=== PATIENT | female | born 1955 | race Caucasian/White ===

== ENCOUNTER 2017-02-06 10:06 | Day surgery (SDC) | payer OTHER, MEDICAID ==
[2017-02-06] MEDS ORDERED: NS 500 ML IV 500 ML IV ONE (10:41)
[2017-02-06] MEDS ORDERED: DUREZOL OPHTH 1 DOSE AFFEYE ONE ×2 (10:50→11:00)
[2017-02-06] MEDS ORDERED: TETRACAINE 0.5% OPHTH 1 DOSE AFFEYE ONE ×5 (10:51→14:55)
[2017-02-06] MEDS ORDERED: VIGAMOX 0.5% OPHTH 1 DOSE AFFEYE ONE ×12 (10:52→15:08)
[2017-02-06] MEDS ORDERED: PROLENSA OPHTH 1 DOSE AFFEYE ONE ×2 (11:03→11:38)
[2017-02-06] MEDS ORDERED: ALPHAGAN-P OPHTH 1 DOSE AFFEYE ONE ×2 (11:04→11:39)
[2017-02-06] MEDS ORDERED: MYDRIACIL OPHTH 1 DOSE AFFEYE ONE ×6 (11:05→11:45)
[2017-02-06] MEDS ORDERED: VISINE-A OPHTH 1 DOSE AFFEYE ONE ×2 (11:05→11:40)
[2017-02-06] MEDS ORDERED: AK-DILATE 2.5% OPHTH 1 DOSE OP ONE ×6 (11:05→11:45)
[2017-02-06] MEDS ORDERED: CYCLOGYL 1% OPHTH 1 DOSE OP ONE ×6 (11:05→11:45)
[2017-02-06] MEDS ORDERED: VERSED SYRUP ONE (14:30)
[2017-02-06] MEDS ORDERED: BETADINE OPHTH SOLN 5% EACHEYE ONE (14:42)
[2017-02-06] MEDS ORDERED: ADRENALINE CHL INJ IJ ONE ×2 (14:48→14:55)
[2017-02-06] MEDS ORDERED: XYLOCAINE-MPF 1% IJ ONE ×2 (14:48→14:55)
[2017-02-06] MEDS ORDERED: DUOVISC IO ONE ×2 (14:48→14:55)
[2017-02-06] MEDS ORDERED: BSS OPHTH (PLAIN) 500 ML with VANCOMYCIN HCL 500 MG VIAL 25 MG, ADRENALINE CHL INJ 1 MG IR ONE ×6 (14:49)
[2017-02-06 16:09] VITALS: BP 116/66
== END 2017-02-06 15:35 | disposition home or self-care (01) ==
LOC: SURG1 10:06
PROVIDERS: ATTEND Ophthalmology
PROC: 08DK3ZZ Extraction of Left Lens, Percutaneous Approach (ICD-10-PCS; principal; 2017-02-06 19:30)
PROC: 08RK3JZ Replacement of Left Lens with Synthetic Substitute, Percutaneous Approach (ICD-10-PCS; principal; 2017-02-06 19:30)
DX: H25.12 Age-related nuclear cataract, left eye (principal); H25.042 Posterior subcapsular polar age-related cataract, left eye; H25.012 Cortical age-related cataract, left eye
CPT/HCPCS: A4217; J0170; J3370

== ENCOUNTER 2017-02-27 08:48 | Day surgery (SDC) | payer OTHER, MEDICAID ==
[2017-02-27] MEDS ORDERED: TETRACAINE 0.5% OPHTH 1 DOSE AFFEYE ONE ×2 (09:00→11:41)
[2017-02-27] MEDS ORDERED: VIGAMOX 0.5% OPHTH 1 DOSE AFFEYE ONE ×5 (09:05→12:05)
[2017-02-27] MEDS ORDERED: NS 500 ML IV 500 ML IV ONE (09:11)
[2017-02-27] MEDS ORDERED: PROLENSA OPHTH 1 DOSE AFFEYE ONE (09:16)
[2017-02-27] MEDS ORDERED: ALPHAGAN-P OPHTH 1 DOSE AFFEYE ONE (09:17)
[2017-02-27] MEDS ORDERED: AK-DILATE 2.5% OPHTH 1 DOSE OP ONE ×3 (09:18→09:20)
[2017-02-27] MEDS ORDERED: CYCLOGYL 1% OPHTH 1 DOSE OP ONE ×3 (09:18→09:20)
[2017-02-27] MEDS ORDERED: MYDRIACIL OPHTH 1 DOSE AFFEYE ONE ×3 (09:18→09:20)
[2017-02-27] MEDS ORDERED: DIPRIVAN VIAL ONE (09:44)
[2017-02-27] MEDS ORDERED: BETADINE OPHTH SOLN 5% EACHEYE ONE (11:41)
[2017-02-27] MEDS ORDERED: BSS OPHTH (PLAIN) 500 ML with VANCOMYCIN HCL 500 MG VIAL 25 MG, ADRENALINE CHL INJ 1 MG IR ONE ×3 (11:53)
[2017-02-27] MEDS ORDERED: ADRENALINE CHL INJ IJ ONE (11:53)
[2017-02-27] MEDS ORDERED: DUOVISC IO ONE (11:53)
[2017-02-27] MEDS ORDERED: XYLOCAINE-MPF 1% IJ ONE (11:53)
[2017-02-27 12:17] VITALS: BP 129/62
== END 2017-02-27 12:28 | disposition home or self-care (01) ==
LOC: SURG1 08:48
PROVIDERS: ATTEND Ophthalmology
PROC: 08RJ3JZ Replacement of Right Lens with Synthetic Substitute, Percutaneous Approach (ICD-10-PCS; principal; 2017-02-27 11:15)
PROC: 08DJ3ZZ Extraction of Right Lens, Percutaneous Approach (ICD-10-PCS; principal; 2017-02-27 11:15)
DX: H25.11 Age-related nuclear cataract, right eye (principal); H25.041 Posterior subcapsular polar age-related cataract, right eye; H25.011 Cortical age-related cataract, right eye
CPT/HCPCS: A4217; J0170; J3370; J3490